=== PATIENT | male | born 1985 | race Caucasian/White ===

== ENCOUNTER 2022-03-01 18:33 | Emergency (ER) | payer BC ==
[2022-03-01] MEDS ORDERED: methylPREDNISolone Sod Succ/PF 125 MG/2 ML VIAL ONE (19:05)
[2022-03-01] MEDS ORDERED: Boostrix 0.5 ML (Tdap) VIAL (>/=7 yrs of age) ONE (19:05)
[2022-03-01] MEDS ORDERED: diphenhydrAMINE 50 MG CAP ONE (19:05)
[2022-03-01] MEDS ORDERED: Famotidine/PF 20 mg/2ml Vial ONE (19:05)
[2022-03-01] MEDS ORDERED: diphenhydrAMINE 50 MG/ML VIAL ONE (19:06)
== END 2022-03-01 20:32 | disposition home or self-care (01) ==
LOC: ERS 18:33
DX: T63.461A Toxic effect of venom of wasps, accidental (unintentional), initial encounter (principal); F17.220 Nicotine dependence, chewing tobacco, uncomplicated; Z23 Encounter for immunization
CPT/HCPCS: 90471; 90715; 96361; 96374; 96375; J1200; J2930; S0028